=== PATIENT | male | born 1960 | race Caucasian/White ===

== ENCOUNTER 2017-10-24 18:02 | Emergency (ER) | payer MEDICAID, OTHER ==
[~2017-10-24] VITALS: Ht 177.8 cm; Wt 99.1 kg
[2017-10-24 19:19] LABS: HEMATOCRIT 52.5 % (39.2-51.8); HEMOGLOBIN 17.9 g/dL (13.7-18.0); WHITE BLOOD COUNT 13.6 x10^3/uL (3.4-10)
[2017-10-24 19:26] LABS: BLOOD UREA NITROGEN 20 mg/dL (7-18)
[2017-10-24] MEDS ORDERED: ONDANSETRON 2MG/ML, 2ML IVPush ONE ×2 (19:30→20:00)
[2017-10-24] MEDS ORDERED: SODIUM CHLORIDE 0.9% 1,000ML IVBOLUS ONE (19:30)
[2017-10-24] MEDS ORDERED: SODIUM CHLORIDE FLUSH 10ML SYR IVF ONE (19:30)
[2017-10-24] MEDS ORDERED: ONDANSETRON 2MG/ML, 2ML ONE (19:39)
[2017-10-24] MEDS ORDERED: METOCLOPRAMIDE 5 MG/ML, 2ML IVPush ONE (20:00)
[2017-10-24] MEDS ORDERED: METOCLOPRAMIDE 5 MG/ML, 2ML ONE (20:26)
[2017-10-24] MEDS ORDERED: OMNIPAQUE 350 MG/ML, 75ML BOTTLE ONE (20:32)
[2017-10-24 21:40] VITALS: BP 151/79
== END 2017-10-24 21:42 | disposition home or self-care (01) ==
LOC: ED 21:36
DX: R11.2 Nausea with vomiting, unspecified (principal); R19.7 Diarrhea, unspecified; I10 Essential (primary) hypertension
CPT/HCPCS: 36415; 74020; 74177; 80048; 82040; 85025; 96361; 96374; 96375; 99285; J2405; J2765; J7030; Q9967